=== PATIENT | female | born 1990 | race Caucasian/White ===

== ENCOUNTER 2017-11-09 15:43 | Emergency (ER) | payer MEDICAID ==
--- NOTE | 2017-11-09 16:48 | EDPHY ---
H & P Time Seen by Provider: 11/09/17 16:03 HPI/ROS: CHIEF COMPLAINT: Knee injury HISTORY OF PRESENT ILLNESS: A 27-year-old female presents to the emergency department by private vehicle complaining of isolated pain in her left knee. The patient was trail running and tripped and fell and injured her left knee. She was able to walk back to her home after she fell. She did not hit her head or lose consciousness. Denies neck or back pain. Denies chest pain or difficulty breathing. Denies paresthesias in upper or lower extremities. Denies pain in the left ankle or left hip. Complains of isolated pain to the left knee especially with movement. Denies any other trauma or injury. REVIEW OF SYSTEMS: Constitutional: No fever, no chills. Eyes: No double or blurry vision. ENT: No sore throat. Respiratory: No cough, no shortness of breath. Cardiac: No chest pain. Gastrointestinal: No abdominal pain, vomiting or diarrhea. Genitourinary: No dysuria. Musculoskeletal: No neck or back pain. Skin: Abrasions. No rashes. Neurological: No headache. Past Medical/Surgical History: Anxiety Social History: Smoking Status: Never smoked Physical Exam: General Appearance: Alert, no distress. No visible signs of trauma to his head. Mentating normally and answering questions appropriately. Eyes: Pupils equal and round. Extraocular motions are all intact. ENT: Mouth: Mucous membranes moist. Respiratory: No wheezing, rhonchi, or rales, lungs are clear to auscultation. Cardiovascular: Regular rate and rhythm. Gastrointestinal: Abdomen is soft and nontender, no masses, no rebound or guarding, bowel sounds normal. Superficial abrasions to the anterior aspect of her abdomen. Neurological: Alert and oriented x 3, cranial nerves II through XII grossly intact Skin: Superficial abrasion to the anterior aspect of the left knee overlying the patella. Superficial abrasions to the anterior aspect of her abdomen. Warm and dry, no rashes. Musculoskeletal: Nontender to palpate along the cervical, thoracic or lumbar spine. Neck is supple. Extremities: Tenderness with palpation over the patella. Mild effusion. Limited flexion secondary to pain. She is able to fully extend her left knee. Nontender to palpate the left ankle or left hip. Psychiatric: Patient is oriented X 3, there is no agitation. Constitutional: Initial Vital Signs Temperature (C) 36.6 C 11/09/17 15:45 Heart Rate 91 11/09/17 15:45 Respiratory Rate 18 11/09/17 15:45 Blood Pressure 126/77 H 11/09/17 15:45 O2 Sat (%) 97 11/09/17 15:45 O2 Delivery Mode Room Air Allergies/Adverse Reactions: No Known Allergies Allergy (Verified 11/09/17 15:45) Home Medications: Medication Instructions Recorded Depo-Subq Provera 104 10/29/17 LORazepam [Ativan 1 mg (RX)] 1 mg PO Q6 PRN #7 tab 10/29/17 LORazepam [Ativan 1 mg (RX)] 1 mg PO Q6 PRN #7 tab 11/01/17 Medical Decision Making - Diagnostics Imaging: I viewed and interpreted images myself ED Course/Re-evaluation: 27-year-old female presents to the emergency department with left knee injury. X-rays reveal small cortical divot fracture of the patella. She was placed in straight leg knee immobilizer and will weightbear as tolerated. She did have an overlying abrasion however no evidence of open fracture. Differential Diagnosis: Including but not limited to fracture, dislocation, contusion, sprain Departure - Departure Disposition: Home, Routine, Self-Care Clinical Impression: Left patella fracture Qualifiers: Encounter type: initial encounter Fracture type: closed Fracture morphology: unspecified fracture morphology Fracture alignment: nondisplaced Qualified Code( s): S82.002A - Unspecified fracture of left patella, initial encounter for closed fracture Condition: Good Instructions: Patellar Fracture (ED) Additional Instructions: Ibuprofen 400 mg every 8 hr as needed for pain. Straight leg knee immobilizer for comfort and support. Weightbear as tolerated. Ice elevate. Follow up with orthopedic surgeon within 1 week to recheck. You have an overlying abrasion 2 your knee and no evidence of open fracture. Antibiotics are not indicated. Referrals: Gianluca Nina MD [Medical Doctor] - 2-3 days without fail (Orthopedic surgeon on-call)
[2017-11-09 17:01] VITALS: BP 118/74
== END 2017-11-09 17:01 | disposition home or self-care (01) ==
DX: S82.002A Unspecified fracture of left patella, initial encounter for closed fracture (principal); W01.0XXA Fall on same level from slipping, tripping and stumbling without subsequent striking against object, initial encounter; Y93.02 Activity, running; Y92.828 Other wilderness area as the place of occurrence of the external cause
CPT/HCPCS: L1830

== ENCOUNTER → 2017-11-29 | Outpatient (CLI) | payer MEDICAID, OTHER | LOC: BMCIMAGING 08:13 | PROVIDERS: ATTEND Physician Assistant | DX: S82.092A Other fracture of left patella, initial encounter for closed fracture (principal) ==

== ENCOUNTER → 2018-01-06 | Outpatient (CLI) | payer MEDICAID | LOC: FIMAGING 06:30 | PROVIDERS: ATTEND Physician Assistant | DX: M25.562 Pain in left knee (principal); S80.02XA Contusion of left knee, initial encounter ==